=== PATIENT | male | born 1990 | race African-American/Black ===

== ENCOUNTER 2021-03-05 22:59 | Emergency (ER) | payer OTHER, SELFPAY ==
[2021-03-05 23:07] VITALS: BP 117/82; PULSE 125; RESP 22; TEMP 36.3; O2SAT 96; BMI 33.6
--- NOTE | 2021-03-05 23:08 | ED_ITS ---
HPI - Allergic Reaction General Chief complaint: Allergic Reaction Stated complaint: ALLERGIC REACTION Time Seen by Provider: 03/05/21 23:07 Source: patient and family Mode of arrival: Ambulatory Limitations: no limitations History of Present Illness HPI narrative: This is a 30-year-old male with known shellfish allergy who had ingested trip earlier today. Patient has developed swelling of his face, tongue he does feel a bit tight his airway. He has noticed little bit of voice changes. Patient had 5-6 tablets of Benadryl in the last 4 hours with minimal improvement. Patient states he has been given EpiPen the past but has never received epinephrine IM or IV. Patient states he has a history of vocal cord dysfunction and is on a PPI but is not in any other regular medications. Denies any other known drug allergies. He does not feel tight or wheezy in his chest. He has not had any vomiting. No diarrhea. He does feel itchy all over although that has been improved with the Benadryl. Related Data Previous Rx's Medication Instructions Recorded epinephrine [EpiPen 2-Pola] 0.3 mg IM Q5-15M PRN #2 ea 03/06/21 prednisone 40 mg PO DAILY #10 tab 03/06/21 Allergies Allergy/AdvReac Type Severity Reaction Status Date / Time shellfish derived Allergy Verified 03/05/21 23:33 Review of Systems Review of Systems ROS Unobtainable: All systems reviewed & are unremarkable except as noted in HPI and below Exam Narrative Exam Narrative: GEN: well nourished, well appearing male, alert and oriented x 3, patient appears to be in moderate distress. HEENT: Atraumatic, pupils are equal round reactive to light, extraocular movements are intact, nares are clear, TMs are clear with no fluid, there is no conjunctival pallor. Throat is clear without any exudates, erythema, tonsillar enlargement or uvular deviation, difficult to ascertain swelling of the tongue but patient does appear to have some mild swelling of his face and lips. Jeff pace also appears to have a little bit erythema of the face and upper extremities and possibly some mild swelling of both hands. HEART: Regular rate and rhythm without murmur, clicks, rubs. LUNGS:Lungs clear to auscultation, no wheezes, rales, crackles, chest moves symmetrically ABD:bowel sounds normal, soft, non-tender, no guarding, rebound, rigidity, no masses noted, no hepatosplenomegaly MSCL: Non-tender, full range of motion, normal gait NEURO:CN 2-12 intact, sensation normal Initial Vital Signs Initial Vital Signs: Vital Signs Temperature 97.3 F L 03/05/21 23:07 Pulse Rate 125 H 03/05/21 23:07 Respiratory Rate 22 03/05/21 23:07 Blood Pressure 117/82 03/05/21 23:07 Pulse Oximetry 96 03/05/21 23:07 Course Orders Ordered: Discontinued Medications Epinephrine HCl (Epinephrine 1 Mg/Ml) 0.5 mg IM NOW ONE Stop: 03/05/21 23:08 Last Admin: 03/05/21 23:15 Dose: 0.5 mg Documented by: SUSAN Famotidine (Pepcid) 20 mg in 50 mls @ 200 mls/hr IV NOW ONE Stop: 03/05/21 23:21 Last Infusion: 03/05/21 23:39 Dose: 0 mls/hr Documented by: Admin: 03/05/21 23:19 Dose: 200 mls/hr Documented by: SUSAN Sodium Chloride (Normal Saline 0.9%) 1,000 mls @ 1,000 mls/hr IV BOLUS ONE Stop: 03/06/21 00:06 Last Infusion: 03/06/21 00:55 Dose: 0 mls/hr Documented by: Admin: 03/05/21 23:19 Dose: 1,000 mls/hr Documented by: SUSAN Methylprednisolone (Methylprednisolone 125 Mg/2 Ml Vial) 125 mg IV NOW ONE Stop: 03/05/21 23:08 Last Admin: 03/05/21 23:19 Dose: 125 mg Documented by: SUSAN Reevaluation(s) Reevaluation #1: recheck after medications given patient feeling improved. Time: 23:42 Reevaluation #2: Recheck patient has continued to feels improved. He would like to return home. We discussed that like to achieve a little bit longer but they are reluctant to stay. He does have an EpiPen at home but it is . I do not have 1 available to give out this evening but we did discuss that he can use his epinephrine but it may not be effective. He also asked that they call 911. Patient states that his swelling has resolved. We discussed that rebound is a possibility with anaphylaxis and if he has any recurrence of symptoms he should not delay being re-evaluated. 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 Patient is improved here in the department. They do not wish to wait any longer. He does have an EpiPen at home a but it has within the last year. Patient was encouraged to stay but they preferred to leave at this time we did discuss that people can have rebound after the epinephrine begins to wear off and patient was encouraged to return immediately and call 911 1st he had any additional symptoms. Discharge Plan Departure Patient Disposition: Home Clinical Impression: Anaphylaxis Instructions: DI for Anaphylaxis Activity Restrictions/Additional Instructions: Follow-up if not having improvement of your symptoms. I would recommend a longer observation period in the emergency department. If you develop recurrent symptoms give yourself your epipen and contact 911. Take steroids daily until gone. Start these in the morning. Use EpiPen as needed. He should always carry an EpiPen with you and make sure that has not . Please return for increasing swelling of your face, tongue, lips or airway, hoarseness or stridor, new rash, swelling of her extremities, chest pain, shortness of breath or wheezing vomiting, diarrhea or other new or concerning symptoms. Prescriptions: New prednisone 20 mg tablet 40 mg PO DAILY Qty: 10 RF: 0 epinephrine [EpiPen 2-Pola] 0.3 mg/0.3 mL auto-injector 0.3 mg IM Q5-15M PRN (Reason: anaphylaxis) Qty: 2 RF: 0
[2021-03-05] MEDS: EPINEPHrine 1 MG/ML 0.5 MG IM (23:15)
[2021-03-05] MEDS: FAMOTIDINE 20 MG/50 ML PIGGYBACK 200 MG IV (23:19)
[2021-03-05] MEDS: methylPREDNISolone 125 MG/2 ML VIAL IV (23:19)
[2021-03-05] MEDS: SODIUM CHLORIDE 0.9% 1,000 ML 1000 ML IV (23:19)
[2021-03-05 23:39] VITALS: BP 112/73; PULSE 95; RESP 18; O2SAT 98
[2021-03-06 01:09] VITALS: BP 131/74; PULSE 118; RESP 18; O2SAT 97
== END 2021-03-06 01:09 | disposition home or self-care (01) ==
PROVIDERS: Emergency Provider Emergency Medicine
DX: T78.02XA Anaphylactic reaction due to shellfish (crustaceans), initial encounter (principal)
CPT/HCPCS: 96361; 96365; 96372; 96375; 99284; 99291; J0171; J2930